=== PATIENT | female | born 1995 | race Caucasian/White ===

== ENCOUNTER 2022-01-02 05:21 | Emergency (ER) | payer BC, SELFPAY ==
--- NOTE | ~2022-01-02 | CT_ITS ---
EXAMINATION: CT abdomen pelvis w con DATE: 01/02/2022 06:43 INDICATION: Lower abdominal pain, nausea and vomiting. Burning with urination. TECHNIQUE: Computed tomography (CT) of the abdomen and pelvis was performed without intravenous contr ast. The dose-length product was 230.16 mGy-cm. Automated exposure control and iterative reconstructi on technique were employed. COMPARISON: None. FINDINGS: Lung bases are unremarkable. Heart size normal. No significant pleural or pericardial effus ion. The liver, spleen, pancreas, adrenal glands and kidneys are unremarkable. Gallbladder is present. Sma ll fat-containing umbilical hernia. There is nonobstructive bowel gas pattern. Moderate colonic fecal loading. Gallbladder is present. There is an intrauterine device in the lower uterine segment. No fr ee air or free fluid. No significant vascular abnormality. No lymphadenopathy. No acute osseous abnor mality. Appendix is normal. Bladder is unremarkable. No abnormal pelvic masses or fluid collections. IMPRESSION: 1. No acute abdominal abnormality. Reviewed, dictated and finalized at location A.
--- NOTE | ~2022-01-02 | US_ITS ---
US pelvic complete w TV DATE: 01/02/2022 10:43 INDICATION: Pelvic pain TECHNIQUE: Real-time imaging via transabdominal and transvaginal approaches COMPARISON: 01/02/2022 CT abdomen pelvis MR pelvis examination FINDINGS: Septate uterus. Central endometrial echo complex measures up to 7 mm AP dimension on the ri ght, 6.4 mm on the left, with fluid and soft tissue density There is a small amount of free fluid in the cul-de-sac. Right ovary measures 1.5 x 2 x 1.8 cm, with vascular flow. Left ovary measures 1.4 x 2.3 x 1.7 cm, with vascular flow. In the left endometrial cavity. IMPRESSION: Septate uterus; fluid and soft tissue density within left endometrial cavity, which measu res up to 6.4 mm AP dimension No ovarian mass lesion or torsion is evident Reviewed, dictated and finalized at [facility]. Reviewed, dictated and finalized at location B. IMPRESSION: Septate uterus; fluid and soft tissue density within left endometri al cavity, which measures up to 6.4 mm AP dimension No ovarian mass lesion or torsion is evident
[2022-01-02 05:21] VITALS: BP 110/66; PULSE 80; RESP 16; TEMP 36.6; O2SAT 98
[2022-01-02 05:56] LABS: Appearance Urine Clear (Clear); Basophils Percent Auto 0.2 % (0.2-1.2); Bilirubin Urine Negative (Negative); Blood Urine Negative (Negative); Color Urine Yellow (Yellow); Eosinophils Absolute Auto 0.2 K/mm3 (0-0.3); Eosinophils Percent Auto 1.1 % (0-4.4); Glucose Urine UA Negative (Negative); Hematocrit 38.8 % (37.0-47.0); Hemoglobin 12.7 g/dL (12.0-15.0); Immature Granulocyte Absolute 0.08 K/mm3 (0.00-0.031); Immature Granulocyte Percent A 0.5 % (0-0.5); Ketones Urine Negative (Negative); Leukocyte Esterase Ur Negative LEU/UL (Negative); Lymphocytes Absolute Auto 3.34 K/mm3 (0.9-3.2); Lymphocytes Percent Auto 21.7 % (18.3-44.2); Mean Corpuscular HGB Conc 32.7 g/dl (32-36); Mean Corpuscular Hemoglobin 30.8 pg (26-34); Mean Corpuscular Volume 94.2 fl (80-100); Mean Platelet Volume 9.5 fl (7.4-10.4); Monocytes Percent Auto 6.4 % (2.6-8.5); Neutrophils Absolute Auto 10.8 K/mm3 (1.3-6.7); Neutrophils Percent Auto 70.1 % (45.5-73.1); Nitrate Urine Negative (Negative); Platelet Count Result 332 k/mm3 (150-375); Protein Urine Negative (Negative); Red Blood Count 4.12 M/mm3 (4.2-5.4); Red Cell Distribution Width 11.9 % (11.5-14.5); Specific Grav Ur >= 1.030 (1.001-1.035); Urobilinogen Urine 0.2 mg/dL (<2.0); White Blood Count 15.4 K/mm3 (4.5-10.0); pH Urine 5.5 (5.0-9.0)
--- NOTE | 2022-01-02 05:58 | ED.ABDPAIN ---
HPI - Abdominal Pain General Chief Complaint: Abdominal Pain <Alexis Linares MD - Last Filed: 01/02/22 06:06> Stated Complaint: abd pain <Alexis Linares MD - Last Filed: 01/02/22 06:06> Time Seen by Provider: 01/02/22 05:30 <Alexis Linares MD - Last Filed: 01/02/22 06:06> Source: patient and family <Alexis Linares MD - Last Filed: 01/02/22 06:06> Mode of arrival: ambulatory <Alexis Linares MD - Last Filed: 01/02/22 06:06> Limitations: no limitations <MD Mylene Canales Last Filed: 01/02/22 06:06> History of Present Illness HPI narrative: 26-year-old otherwise healthy here with complaints of suprapubic pain for past 1 hour. Patient states is constant in nature. She denies any nausea, vomiting. She states that she had dysuria a week ago was given 3-day course of Macrobid. She denies any blood in the urine. No history of vaginal bleeding or discharge. She is on control. Patient denies any previous history of ovarian cyst. <Alexis Linares MD - Last Filed: 01/02/22 06:06> MD elicited complaint: abdominal pain <Alexis Linares MD - Last Filed: 01/02/22 06:06> Pertinent past history: none <Alexis Linares MD - Last Filed: 01/02/22 06:06> Onset (ago): hour(s) (1) <Alexis Linares MD - Last Filed: 01/02/22 06:06> Location: suprapubic <MD Mylene Canales Last Filed: 01/02/22 06:06> Severity: moderate <MD Mylene Canales Last Filed: 01/02/22 06:06> Quality: aching <Alexis Linares MD - Last Filed: 01/02/22 06:06> Radiation: none <MD Mylene Canales Last Filed: 01/02/22 06:06> Migration to: no migration <MD Mylene Canales Last Filed: 01/02/22 06:06> Exacerbating factors: nothing <Alexis Linares MD - Last Filed: 01/02/22 06:06> Relieving factors: nothing <Alexis Linares MD - Last Filed: 01/02/22 06:06> Associated symptoms: denies other symptoms <Alexis Linares MD - Last Filed: 01/02/22 06:06> Related Data Home Medications: Home Medications Medication Instructions Recorded Confirmed cholecalciferol (vitamin D3) 50 50 mcg PO DAILY 12/13/20 04/16/21 mcg (2,000 unit) tablet quetiapine 400 mg tablet (Seroquel) 400 mg PO ONCE 12/13/20 04/16/21 etonogestrel 0.12 mg-ethinyl 1 vag ring vaginal ONCE 01/20/21 04/16/21 estradiol 0.015 mg/24 hr vaginal ring (NuvaRing) <Alexis Linares MD - Last Filed: 01/02/22 06:06> Allergies/Adverse Reactions: Allergies Allergy/AdvReac Type Severity Reaction Status Date / Time hydrocodone AdvReac Intermediate nauseous Verified 01/02/22 05:24 <Alexis Linares MD - Last Filed: 01/02/22 06:06> Review of Systems Review of Systems: All systems reviewed & are unremarkable except as noted in HPI and below <Alexis Linares MD - Last Filed: 01/02/22 06:06> Constitutional: Constitutional: Reports no additional constitutional complaints <Alexis Linares MD - Last Filed: 01/02/22 06:06> Eyes: Eyes: Reports no additional eye complaints <Alexis Linares MD - Last Filed: 01/02/22 06:06> ENT: Reports system reviewed and no additional complaints, except as documented <Alexis Linares MD - Last Filed: 01/02/22 06:06> Cardiovascular: Cardiovascular: Reports no additional cardiovascular complaints <Alexis Linares MD - Last Filed: 01/02/22 06:06> Respiratory: Respiratory: Reports no additional respiratory complaints <Alexis Linares MD - Last Filed: 01/02/22 06:06> Gastrointestinal: Gastrointestinal: Reports as per HPI <Alexis Linares MD - Last Filed: 01/02/22 06:06> Genitourinary: Genitourinary: Reports no additional female genitourinary complaints <Alexis Linares MD - Last Filed: 01/02/22 06:06> Musculoskeletal: Musculoskeletal: Reports no additional musculoskeletal complaints <Alexis Linares MD - Last Filed: 01/02/22 06:06> Integumentary/Breasts: Skin/Breast: Reports system reviewed and no additional complaints, except as docu <
[2022-01-02 06:04] LABS: Alanine Aminotransferase 16 U/L (6-35); Albumin Level 3.5 g/dL (3.5-5.1); Alkaline Phosphatase 51 U/L (38-126); Anion Gap 3 mmol/L (8-16); Aspartate Amino Transferase 28 U/L (14-36); Bilirubin,Total 0.3 mg/dL (0.2-1.3); Blood Urea Nitrogen 10 mg/dL (7-17); Calcium 8.3 mg/dL (8.4-10.2); Carbon Dioxide 25 mmol/L (22-30); Chloride 108 mmol/L (98-107); Estimated CRCL calculation 97 ml/min; Estimated Glomerular Filt Rate > 60; Glucose 108 mg/dL (65-110); Lipase 58 U/L (23-300); Potassium 3.6 mmol/L (3.4-5.0); Sodium 136 mmol/L (137-145)
[2022-01-02 06:23] LABS: Add Urine Microscopic? NO
[2022-01-02 07:08] VITALS: BP 111/67; PULSE 69; RESP 16; O2SAT 100
--- NOTE | 2022-01-02 09:20 | PC.NURSE ---
pt resting on stretcher with mother at bedside. ultrasound ordered.
[2022-01-02 12:35] VITALS: BP 119/77; PULSE 78; RESP 16
[2022-01-02] MEDS: KETOROLAC 30 MG/ML VIAL (*BKC) IV PUSH (12:35)
== END 2022-01-02 12:35 | disposition home or self-care (01) ==
PROVIDERS: Family Medicine; Emergency Provider Emergency Medicine; PCP Family Medicine
DX: R10.31 Right lower quadrant pain (principal); R10.32 Left lower quadrant pain
CPT/HCPCS: 36415; 74177; 76830; 76856; 80053; 81003; 81025; 83690; 85025; 99284; J1885; Q9967

== ENCOUNTER 2022-09-24 18:17 | Emergency (ER) | payer BC, SELFPAY ==
--- NOTE | ~2022-09-24 | XR_ITS ---
XR abdomen/kub 1V DATE: 09/24/2022 19:14 INDICATION: Abdominal pain TECHNIQUE: 2 AP views COMPARISON: None FINDINGS: No evidence of bowel obstruction. The psoas shadows are intact. No visceromegaly. Probable left calcified pelvic phleboliths. IMPRESSION: Nonspecific abdomen Reviewed, dictated and finalized at [facility]. Reviewed, dictated and finalized at location A. IMPRESSION: Nonspecific abdomen
--- NOTE | 2022-09-24 18:24 | ED.ABDPAIN ---
HPI - Abdominal Pain General Chief Complaint: Nausea/Vomiting/Diarrhea Stated Complaint: dizziness,abdominal pain Time Seen by Provider: 09/24/22 18:24 Source: patient Mode of arrival: ambulatory Limitations: no limitations History of Present Illness HPI narrative: Vanessa is a 27-year-old female patient presenting to the clinic today with complaints of abdominal pain and dizziness times 2-3 days. She reports she has had a GI bug over the last few days with nausea and diarrhea. She denies any fever chills but today she developed dizziness upon standing and pain into her upper abdomen and then when she is sitting she is having some pain in her lower back. She denies any urinary symptoms, fever, or chills. States when she stands up she feels somewhat unsteady. Denies any nausea or diarrhea today. Related Data Home Medications Medication Instructions Recorded Confirmed quetiapine 400 mg tablet (Seroquel) 400 mg PO ONCE 12/13/20 04/16/21 etonogestrel 0.12 mg-ethinyl 1 vag ring vaginal ONCE 01/20/21 04/16/21 estradiol 0.015 mg/24 hr vaginal ring (NuvaRing) bupropion HCl 100 mg tablet 300 mg PO DAILY 09/24/22 09/24/22 Allergies Allergy/AdvReac Type Severity Reaction Status Date / Time hydrocodone AdvReac Intermediate nauseous Verified 09/24/22 18:33 Review of Systems Review of Systems: Pertinent positives per HPI. Patient denies any fever, chills, rash, headache, visual changes, cough, runny nose, sore throat, shortness of breath, chest pain, palpitations, constipation, or any urinary issues. 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 There is no relevant family history pertinent to the patient complaint. Exam Narrative: General: Well-developed, well nourished, in no apparent distress Head: Normocephalic, atraumatic Eyes: Pupils equally round and reactive to light bilaterally, EOM intact, sclera and conjunctive clear, no discharge, lids normal Ears: TMs intact and clear, ear canals clear, no drainage, grossly hearing normal. Nose: Nares patent, no discharge, no inflammation, no sinus tenderness. Mouth: Oropharynx without lesions or masses, good dentition, MMM. Tongue midline, even rise and fall of uvula Neck: Supple, trachea midline, no enlargement of anterior or posterior cervical nodes, no thyroid masses or goiter palpable. Cardio: Regular rate and rhythm, s1 and s2 normal, no murmur appreciated. Resp: Clear to auscultation bilaterally anteriorly and posteriorly, no rhonchi, rales, wheezing or rubs Abdomen: Soft, pliable, nondistended, bowel sounds present all 4 quadrants, nontender to palpation, no organomegaly, no CVAT tenderness Musculoskeletal: No deformity, non-tender to palpation, grossly normal range of motion, muscle strength strong and equal, peripheral pulse strong, no edema, no cyanosis, normal gait and station Neuro: Alert and oriented x4 with normal speech, no focal deficits, cranial nerves I through XII intact, muscle strength 5 out of 5, sensation intact bilaterally
[2022-09-24 18:30] VITALS: BP 113/72; PULSE 90; RESP 18; TEMP 36.8; O2SAT 100
[2022-09-24 18:55] LABS: Glucose Point of Care 93 mg/dl (65-105)
[2022-09-24 19:00] VITALS: BP 116/76; PULSE 76
[2022-09-24 19:01] VITALS: BP 117/78; BP 123/81; PULSE 81; PULSE 91
== END 2022-09-24 19:38 | disposition home or self-care (01) ==
PROVIDERS: Emergency Provider Nurse Practitioner Family; PCP Internal Medicine
DX: R42 Dizziness and giddiness (principal); R10.10 Upper abdominal pain, unspecified; M54.50 Low back pain, unspecified; F31.9 Bipolar disorder, unspecified; F41.9 Anxiety disorder, unspecified
CPT/HCPCS: 74018; 81003; 82948; 87804; 99213; G0463

== ENCOUNTER 2023-04-06 10:55 | Outpatient (CLI) | payer OTHER, SELFPAY ==
[2023-04-06 12:21] LABS: Strep Group A RT-PCR NOT DETECTED (Negative)
[2023-04-06 12:32] LABS: Influenza A QL RT-PCR Negative (Negative); Influenza B QL RT-PCR Negative (Negative); SARS-CoV-2 RNA PCR Negative (Negative)
== END 2023-04-06 10:56 | disposition home or self-care (01) ==
PROVIDERS: PCP Internal Medicine; Visit Provider Internal Medicine
DX: J06.9 Acute upper respiratory infection, unspecified (principal)
CPT/HCPCS: 87502; 87635; 87651

== ENCOUNTER → 2023-05-25 08:12 | Outpatient (CLI) | payer OTHER, SELFPAY ==
--- NOTE | ~2023-05-25 | MR_ITS ---
EXAMINATION: MR pelvis wo/w con INDICATION: Uterus didelphys, abnormal Pap smear TECHNIQUE: Coronal SSFSE ARC, Coronal, Axial, and Sagittal T2 FRFSE small [id number]-ragt, Coronal 2D F IESTA FatSat, Axial SSFSE BH ARC, Axial 3D DualEcho BH, Axial STIR, Axial DWI b=500, pre and dynamic postcontrast Axial LAVA ARC COMPARISON: 02/28/2019 CONTRAST: Multihance, 12 cc FINDINGS: Again noted is a septum of the wrist and extends through the cervix. The fundal contour of the uterus is normal. There is no endometrial thickening. The cervix appears unremarkable. There are no pathologically enlarged pelvic lymph nodes. Multiple follicles are noted in the ovaries. IMPRESSION: 1. Septate uterus without acute abnormality identified. Reviewed, dictated and finalized at location F. ITION NOTCHER
== END ==
DX: Q51.28 Other and unspecified doubling of uterus (principal)
CPT/HCPCS: 72197; A9577

== ENCOUNTER → 2023-05-25 08:15 | Outpatient (CLI) | payer OTHER, SELFPAY ==
--- NOTE | ~2023-05-25 | MR_ITS ---
EXAMINATION: MR wrist LT wo con DATE: 05/25/2023 10:00 INDICATION: Left wrist ganglion cyst TECHNIQUE: Magnetic resonance imaging (MRI) of the left wrist was performed without intravenous contr ast. Sequences performed include axial PD-weighted FSE and PD-weighted FS FSE, coronal PD-weighted FS FSE and T1-weighted SE, and sagittal PD-weighted FS FSE and PD-weighted FSE. COMPARISON: None FINDINGS: Intrinsic ligaments: The scapholunate and lunotriquetral ligaments are normal. Triangular fibrocartilage complex (TFCC): The triangular fibrocartilage including its foveal and styloid attachments are normal. The volar radi oulnar ligament is normal. Likely partial tear of the dorsal radioulnar ligament. The ulnar collatera l ligament, ulnotriquetral ligament and meniscal homologue are normal. There is a tear of the ulnar s jessica of the extensor carpi ulnaris of sheath resulting in ulnar subluxation of the tendon across the r im of the ECU groove and across the tip of the ulnar styloid process. Extensor wrist: Mild tendinopathy with small partial-thickness longitudinal split tear centered at the level of the t ip of the ulnar styloid process. The remaining extensor tendons of the wrist are normal. There is mil d tenosynovitis in the second dorsal compartment with small amount of fluid signal surrounding the ex tensor carpi radialis longus and brevis tendons at the level of the wrist joint. Flexor wrist: The flexor tendons of the wrist are normal. No abnormality in the carpal tunnel with normal median n erve. Guyon's canal: Guyon's canal including the ulnar nerve and artery are normal. Bones/other: Normal marrow signal. No fracture, erosions, avascular necrosis or abnormal marrow replacing process. Joint spaces are normal with no focal cartilage defects appreciated. Small ganglion cyst located vo lar to the radioscaphoid articulation which measures 11 cm proximal to distal and 3 x 6 mm in maximal transaxial dimensions. There is an additional small ganglion cyst which appears to arise from the tr iscaphe joint and extends approximately 1.6 cm in a curved path volar and radially between the flexor carpi radialis tendon and the more ulnar-sided flexor pollicis longus tendon. The cyst measures 2-3 mm in maximal orthogonal dimensions. IMPRESSION: 1. A couple small ganglion cyst at the volar aspect of the wrist and carpus. 2. Partial tear of the dorsal radioulnar ligament component of the triangular fibrocartilage complex. 3. Tear of the extensor carpi ulnaris of sheath with mild tendinopathy and small partial-thickness sp lit tear of the extensor carpi ulnaris tendon centered where it is subluxed across the tip of the uln ar styloid process. 4. Mild tenosynovitis along the normal-appearing extensor carpi radialis longus and brevis tendons. Reviewed, dictated and finalized at location A. PEDIATRICIAN IMPRESSION: 1. A couple small ganglion cyst at the volar aspect of the wrist and carpus. 2. Partial tear of the dorsal radioulnar ligament component of the triangular f ibrocartilage complex. 3. Tear of the extensor carpi ulnaris of sheath with mild tendinopathy and smal l partial-thickness split tear of the extensor carpi ulnaris tendon centered wh ere it is subluxed across the tip of the ulnar styloid process. 4. Mild tenosynovitis along the normal-appearing extensor carpi radialis longus and brevis tendons.
== END ==
PROVIDERS: PCP Physician Assistant Surgical; Visit Provider Physician Assistant Surgical
DX: M67.432 Ganglion, left wrist (principal)
CPT/HCPCS: 73221

== ENCOUNTER → 2023-08-11 14:43 | Outpatient (CLI) | payer OTHER, SELFPAY ==
--- NOTE | ~2023-08-11 | MR_ITS ---
EXAMINATION: MR brain/brain stem wo con DATE: 08/11/2023 15:14 INDICATION: Migraine headache. TECHNIQUE: Magnetic resonance imaging (MRI) of the brain and brainstem was performed without intraven ous contrast. COMPARISON: None. FINDINGS: There is no intracranial hemorrhage, acute infarction, or abnormal intracranial mass lesion . The ventricles are normal in size. The mastoid air cells are normal. The paranasal sinuses are oksana r. The orbits are normal. IMPRESSION: 1. Normal brain. Reviewed, dictated and finalized at location E. BITS MANAGER IMPRESSION: 1. Normal brain.
== END ==
PROVIDERS: PCP Internal Medicine; Visit Provider Internal Medicine
DX: G43.909 Migraine, unspecified, not intractable, without status migrainosus (principal)
CPT/HCPCS: 70551

== ENCOUNTER 2023-09-30 07:00 | Outpatient (NON) | payer OTHER, SELFPAY | END 2023-09-30 07:01 | disposition home or self-care (01) | PROVIDERS: PCP Internal Medicine; Visit Provider Plastic Surgery | DX: M67.432 Ganglion, left wrist (principal) | CPT/HCPCS: 88305 ==

== ENCOUNTER 2023-09-30 07:07 | Day surgery (SDC) | payer OTHER, SELFPAY ==
[2023-08-04 13:49] VITALS: BMI 24.5
--- NOTE | 2023-09-30 07:09 | PM.HPGS ---
History of Present Illness History of Present Illness Chief complaint: Ganglion Cyst Left Volar Wrist Narrative: Patient seen and examined in pre-operative holding area. No interval change in medical history or symptoms. Patient recalls previous discussion of benefits and alternatives to procedure. Continues to desire to proceed with left volar wrist ganglion cyst excision . Reviewed procedure, post-op expectations and risks including but not limited to bleeding, infection, injury to tendon/nerve/vessel, decreased hand function, stiffness, RSD, recurrence, no change or worsening of symptoms. I discussed the possible use of assistants and their participation in the case. Patient stated understanding and signed the consent form wishing to proceed. 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 Suicide and self-inflicted injury by unspecified means Undiagnosed cardiac murmurs Unspecified vitamin D deficiency Uterus didelphys Family History Family History Father Diabetes mellitus Family history of hepatitis Grandparent Diabetes mellitus Family history of lymphoma Hypertension Family history of cardiovascular disease Mother Family history of hypercholesterolemia Hypertension Depression Social History Social History Smoking status: Never smoker Second hand tobacco smoke exposure: No Alcohol intake: never Substance use: never Substance use type: does not use Do You Feel Safe in your Home?: Yes Lack of Transportation: No Lack of Food: Never True Current Housing: I Have Housing Concerned About Future Housing: No Difficulty Paying Gas/Electric Bills: No Difficulty Paying for Meds: No Currently Unemployed: No Education: High School Diploma/GED Difficulty w/ Childcare or Family Care: No Living arrangements: with family Spiritual care concerns: No Meds Home Medications and Allergies Home Medications Medication Instructions Recorded Confirmed Type quetiapine 400 mg tablet (Seroquel) 400 mg PO ONCE 12/13/20 09/30/23 History etonogestrel 0.12 mg-ethinyl 1 vag ring vaginal ONCE 01/20/21 09/30/23 History estradiol 0.015 mg/24 hr vaginal ring (NuvaRing) bupropion HCl 100 mg tablet 300 mg PO DAILY 09/24/22 09/30/23 History tramadol 50 mg tablet 50 mg PO Q6H PRN pain #8 tabs 09/30/23 Rx Allergies Allergy/AdvReac Type Severity Reaction Status Date / Time hydrocodone AdvReac Intermediate nauseous Verified 09/30/23 07:57 Exam Narrative: unchanged Assessment and Plan Assessment and plan (1) Ganglion cyst of volar aspect of left wrist: Code(s): M67.432 - Ganglion, left wrist Status: Acute Assessment and Plan: cont as above
--- NOTE | 2023-09-30 07:10 | W.PM.PROC2 ---
Procedure Note - Detailed Date of Procedure 09/30/23 Pre-op Diagnosis Ganglion Cyst Left Volar Wrist Post-op Diagnosis Same Procedure Performed left volar wrist ganglion excision Surgeon Keith Pruett MD Electrical Assembly Supervisor Gretchen Nogueira PA-C Anesthesia MAC Description of Procedure INFORMED CONSENT: The patient was seen and examined and marked in the pre-op area.? The patient signed the consent form. PROCEDURE IN DETAIL:The patient taken back to OR on the stretcher in supine position. Time out performed with anesthesia, surgeon and staff agreeing on patient's name site and surgery to be performed SCDs were placed on the lower extremities and inflated. A tourniquet was placed on {left} upper extremity and antibiotics given IV After anesthesia administered sedation I injected {6}cc 1%lido with epi and 0.5% marcaine plain at the operative site The?{left upper extremity}?was prepped and draped in sterile fashion the??{left upper extremity} was? exsanguinated with Esmarch bandage and tourniquet inflated to 250mmHg I made a longitudinal incision over the {left} volar wrist mass going obliquely across the flexion crease through skin and dermis with a 15 blade scalpel. I eleveated skin flaps in subq plane and identified the cystic mass. I proceeded with circumferential dissection around the cyst down to volar wrist capsule and transected it with bipolar cautery. I irrigated with normal saline and repaired the capsular defect with 4-0 vicryl. The tourniquet was let down noting the hand was warm and well perfused and radial artery intact. Skin was closed with 4-0 vicryl and 4-0 chromic. A dressing of xeroform, 4x4, rolly, and a volar splint was applied for patient safety, security, and comfort and secured with an jania bandage after the tourniquet was let down noting the hand was warm and well perfused. The patient was then awaken from anesthesia and transferred to the recovery room in stable condition.? Complications - none EBL- 2cc Disposition - home in stable conditions Gretchen Nogueira PA-C was essential for positiioning, retraction, closure and dressing placement [facility] Billing Surgery - Charge Forward: Surgery Billing ([id number] same for gretchen adding mod )
[2023-09-30 08:01] VITALS: BP 114/86; PULSE 76; RESP 14; TEMP 36.9; O2SAT 99
--- NOTE | 2023-09-30 08:25 | WPDANESEPPF ---
Anes - Initial Pre Proc Eval Procedure: Operation Date: 09/30/23 09:15 Proposed Procedures p Excision Ganglion Cyst Left Volar Wrist - Keith Pruett MD Date/Time: 09/30/23 08:25 Surgeon: Keith Pruett MD Pre Op Diagnosis: Ganglion Cyst Left Volar Wrist Patient Data Age: 28 Gender: F Height: 1.57 m Weight: 65.8 kg Last Vital Signs Temp 36.9 C 09/30/23 08:01 Pulse 76 09/30/23 08:01 Resp 14 09/30/23 08:01 BP 114/86 09/30/23 08:01 Pulse Ox 99 09/30/23 08:01 O2 Del Method Room Air 09/30/23 08:01 Allergies Allergy/AdvReac Type Severity Reaction Status Date / Time hydrocodone AdvReac Intermediate nauseous Verified 09/30/23 07:57 Home Medications Medication Instructions Recorded Confirmed Type quetiapine 400 mg tablet (Seroquel) 400 mg PO ONCE 12/13/20 09/30/23 History etonogestrel 0.12 mg-ethinyl 1 vag ring vaginal ONCE 01/20/21 09/30/23 History estradiol 0.015 mg/24 hr vaginal ring (NuvaRing) bupropion HCl 100 mg tablet 300 mg PO DAILY 09/24/22 09/30/23 History tramadol 50 mg tablet 50 mg PO Q6H PRN pain #8 tabs 09/30/23 Rx Patient hx anesthesia problems: none Family hx anesthesia problems: none Results Review: All pre-operative results and documents have been reviewed as part of the pre-operative evaluation. 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 Suicide and self-inflicted injury by unspecified means Undiagnosed cardiac murmurs Unspecified vitamin D deficiency Uterus didelphys Family History Family History Father Diabetes mellitus Family history of hepatitis Grandparent Diabetes mellitus Family history of lymphoma Hypertension Family history of cardiovascular disease Mother Family history of hypercholesterolemia Hypertension Depression Social History Social History Smoking status: Never smoker Second hand tobacco smoke exposure: No Alcohol intake: never Substance use: never Substance use type: does not use Do You Feel Safe in your Home?: Yes Lack of Transportation: No Lack of Food: Never True Current Housing: I Have Housing Concerned About Future Housing: No Difficulty Paying Gas/Electric Bills: No Difficulty Paying for Meds: No Currently Unemployed: No Education: High School Diploma/GED Difficulty w/ Childcare or Family Care: No Living arrangements: with family Spiritual care concerns: No Anes - Eval Final PreProcedure Day of Procedure 09/30/23 08:25 Patient weight: normal Heart: regular rate and rhythm Lungs: clear to auscultation Airway: Mallampati scale class 1 Neurological: alert and oriented Last oral intake: >/= 8 hours ASA classification: II Emergent: no Anesthetic plan: proceed Anesthesia type and monitoring: general GIVS and standard monitoring Results Review: All pre-operative results and documents have been reviewed as part of the pre-operative evaluation. Informed Consent: The patient's anesthetic plan and its attendant risks and benefits were discussed with the patient/family/POA. Questions were solicited and answers provided to the satisfaction of the patient/family/POA.
[2023-09-30] MEDS: LACTATED RINGERS 1,000 ML 30 ML IV CONT (08:28)
[2023-09-30] MEDS: ceFAZolin SODIUM 2 GM/20 ML SW SYRINGE IV PUSH (08:52)
[2023-09-30 09:23] VITALS: BP 102/55; PULSE 64; RESP 16; O2SAT 99
[2023-09-30 09:50] VITALS: BP 117/72; PULSE 64; RESP 16; O2SAT 100
--- NOTE | 2023-09-30 09:50 | WPDANESPN ---
Anes - Prog Note Post-Op Date/Time: 09/30/23 09:50 Cardiovascular status: normal Respiratory status: normal Airway patency: baseline Mental status: baseline Post-Op hydration status: normal Vital Signs: Last Vital Signs Temp 36.9 C 09/30/23 08:01 Pulse 64 09/30/23 09:23 Resp 16 09/30/23 09:23 BP 102/55 L 09/30/23 09:23 Pulse Ox 99 09/30/23 09:23 O2 Del Method Room Air 09/30/23 08:01 Pain Score (VAS): 0/10 Patient Feedback: Patient satisfied with anesthetic care.
[2023-09-30 10:02] VITALS: BP 105/78; PULSE 60; RESP 15; O2SAT 100
== END 2023-09-30 10:14 | disposition home or self-care (01) ==
PROVIDERS: PCP Internal Medicine; Visit Provider Plastic Surgery
PROC: (CPT 25111; principal; 2023-09-30 09:15)
DX: M67.432 Ganglion, left wrist (principal)
CPT/HCPCS: 25111